=== PATIENT | male | born 1995 | race Caucasian/White ===

== ENCOUNTER → 2019-11-14 | Outpatient (CLI) | payer OTHER | END | disposition home or self-care (01) | LOC: LABMAIN 17:20 | PROVIDERS: ATTEND Physician Assistant | DX: R05 Cough (principal); R50.9 Fever, unspecified; Z20.828 Contact with and (suspected) exposure to other viral communicable diseases ==

== ENCOUNTER → 2020-12-30 | Outpatient (CLI) | payer OTHER ==
--- NOTE | 2020-12-31 07:57 | XR ---
EXAMINATION TYPE: XR hand complete RT DATE OF EXAM: 12/30/2020 CLINICAL HISTORY: Injury a week ago with pain. TECHNIQUE: Frontal, lateral and oblique images of the right hand are obtained. COMPARISON: None. FINDINGS: Focal moderate soft tissue swelling at the fourth PIP joint with incomplete extension. Ther e is no acute fracture/dislocation evident in the right hand with particular attention to the fourth finger. No suspicious bony destruction. The joint spaces in the right hand appear within normal limit s. No suspicious radiodense soft tissue foreign body. IMPRESSION: As above.
== END | disposition home or self-care (01) ==
LOC: RADXRMAIN 17:51
PROVIDERS: ATTEND Internal Medicine
DX: M25.541 Pain in joints of right hand (principal)